=== PATIENT | female | born 1945 | race Caucasian/White ===

== ENCOUNTER 2019-03-05 09:44 | Emergency (ER) | payer MEDICARE, OTHER ==
[~2019-03-05] VITALS: Ht 165.1 cm; Wt 73.6 kg
--- NOTE | 2019-03-05 10:05 | NUR ---
PT TO ROOM AT THIS TIME.
[2019-03-05] MEDS ORDERED: ONDANSETRON 2MG/ML, 2ML IVPush ONE (10:30)
[2019-03-05] MEDS ORDERED: SODIUM CHLORIDE FLUSH 10ML SYR IVF ONE (10:30)
[2019-03-05] MEDS ORDERED: MORPHINE SULFATE 4 MG/ML, 1ML IVPush PRN (10:30)
[2019-03-05] MEDS ORDERED: MORPHINE SULFATE 4 MG/ML, 1ML ONE (10:31)
[2019-03-05] MEDS ORDERED: ONDANSETRON 2MG/ML, 2ML ONE (10:31)
--- NOTE | 2019-03-05 10:37 | NUR ---
PT HERE TODAY FOR PAIN IN LEFT HIP. FELL TWO DAYS AGO. STATES PAIN IS 8/10. FEELS WEAK AND NOT HERSELF. CURRENTLY RESTING ON GURNEY. NADN. VSS. PIV STARTED. MEDICATED PER EMAR.
--- NOTE | 2019-03-05 10:51 | NUR ---
PT IN RADIOLOGY NOW.
--- NOTE | 2019-03-05 11:07 | NUR ---
PT BACK FROM RADIOLOGY. RESTING ON [employer], CONNECTED TO MONITOR.
[2019-03-05] MEDS ORDERED: DIAZEPAM 5 MG/ML, 2ML ONE (11:46)
--- NOTE | 2019-03-05 11:49 | NUR ---
PT MEDICATED PER EMAR. RESTING ON GURNEY. NADN. VSS.
[2019-03-05 11:52] VITALS: BP 128/67
--- NOTE | 2019-03-05 11:54 | NUR ---
PT NOTED TO BE 85% ON RA AFTER ADMINISTRATION OF MEDICATION. PLACED ON 2L NC. NOW 93% ON 2L.
[2019-03-05] MEDS ORDERED: DIAZEPAM 5 MG/ML, 2ML IV ONE (12:00)
[2019-03-05] MEDS ORDERED: KETOROLAC 30 MG/1 ML ONE (13:12)
--- NOTE | 2019-03-05 13:15 | NUR ---
PT MEDICATED PER EMAR. HELPED OOB TO GET DRESSED. AWARE OF DC PLAN.
[2019-03-05] MEDS ORDERED: KETOROLAC 30 MG/1 ML IVPush ONE (13:30)
== END 2019-03-05 13:31 | disposition home or self-care (01) ==
LOC: ED 11:16
DX: S39.012A Strain of muscle, fascia and tendon of lower back, initial encounter (principal); J44.9 Chronic obstructive pulmonary disease, unspecified; W01.0XXA Fall on same level from slipping, tripping and stumbling without subsequent striking against object, initial encounter; Y93.89 Activity, other specified; Y92.89 Other specified places as the place of occurrence of the external cause; Y99.8 Other external cause status
CPT/HCPCS: 72110; 72190; 96374; 96375; 99283; J1885; J2270; J2405; J3360